=== PATIENT | female | born 1985 | race Two or more races ===

== ENCOUNTER 2016-12-28 18:37 | Emergency (ER) | payer OTHER ==
[~2016-12-28] VITALS: Ht 165.1 cm; Wt 118.3 kg
[~2016-12-28 18:37] MED LIST: FLEXERIL10 MG PO; TYLENOL WITH C1 EACH PO
[2016-12-28 19:09] LABS: HEMATOCRIT 41.7 % (36.0-46.0); MCH 26.5 PG (29.0-34.0); MCHC 31.9 G/DL (30.0-36.0); MCV 83.1 FL (83-99); PLATELET COUNT 237 K/uL (156-360); RBC DIS.WIDTH-CV 15.4 % (11.8-14.6); RBC DIS.WIDTH-SD 46.3 % (39-53); RED BLOOD COUNT 5.02 M/uL (3.80-5.20); WHITE BLOOD COUNT 14.9 K/uL (4.1-10.2)
[2016-12-28 19:17] LABS: CHLORIDE 103 mEq/L (99-109); POTASSIUM 4.4 mEq/L (3.7-5.4); SODIUM 138 mEq/L (136-147)
[2016-12-28 19:19] LABS: GLUCOSE 129 mg/dL (70-99)
[2016-12-28 19:20] LABS: ANION GAP 9 MEQ/L (2-14)
[2016-12-28 19:23] LABS: GFR ESTIMATE (CALCULATED) > 59 mL/min/
[2016-12-28 19:24] LABS: UREA NITROGEN (BUN) 8 mg/dL (9-23)
[2016-12-28 20:05] LABS: ADD MIUA? YES; BILIRUBIN NEGATIVE; BLOOD SMALL; COLOR YELLOW ((YELLOW)); GLUCOSE (STRIP) NEGATIVE; KETONES NEGATIVE; LEUKOCYTES MODERATE; NITRITE POSITIVE; PROTEIN (STRIP) 30; SPECIFIC GRAVITY 1.021 (1.000-1.030); UROBILINOGEN 0.2 MG/DL (0.2-1.0)
[2016-12-28 20:11] LABS: BACTERIA RARE /HPF; CALCIUM OXALATE CRYSTALS 2+ /HPF; EPITHELIAL CELLS 1+ /HPF; HYALINE CASTS 0-5 /LPF; MUCUS TRACE /LPF; RED BLOOD CELLS 0-5 /HPF (0-5); UCUL ADDED? NO
[2016-12-28 20:27] LABS: TOTAL BILIRUBIN 0.2 mg/dL (0.0-1.0)
[2016-12-28 20:29] LABS: ALKALINE PHOSPHATASE 67 IU/L (3-129)
[2016-12-28 20:31] LABS: DIRECT BILIRUBIN 0.1 mg/dL (0.0-0.3)
[2016-12-28 20:32] LABS: LIPASE 44 U/L (1.0-51.0)
[2016-12-28] MEDS ORDERED: LEVAQUIN500 MG PO (22:09)
[2016-12-28] MEDS ORDERED: INDOCIN50 MG PO (22:12)
[2016-12-28] MEDS ORDERED: ZOFRAN ODT4 MG PO (22:12)
[2016-12-28 22:31] VITALS: BP 113/74
== END 2016-12-28 22:32 | disposition home or self-care (01) ==
LOC: EME 18:37
DX: N39.0 Urinary tract infection, site not specified (principal); N12 Tubulo-interstitial nephritis, not specified as acute or chronic; R11.2 Nausea with vomiting, unspecified; F17.200 Nicotine dependence, unspecified, uncomplicated
CPT/HCPCS: 74176; 80048; 80076; 81003; 83690; 85027; 87077; 87086; 87186; 99281; 99284; J1885; J3010

== ENCOUNTER 2018-01-12 18:40 | Emergency (ER) | payer OTHER ==
[~2018-01-12] VITALS: Ht 165.1 cm; Wt 118.4 kg
[~2018-01-12 18:40] MED LIST changes: +INDOCIN50 MG PO; +LEVAQUIN500 MG PO; +ZOFRAN ODT4 MG PO
[2018-01-12 19:27] LABS: APPEARANCE CLEAR ((CLEAR)); BILIRUBIN NEGATIVE; BLOOD NEGATIVE; COLOR STRAW ((YELLOW)); GLUCOSE (STRIP) NEGATIVE; KETONES NEGATIVE; LEUKOCYTES NEGATIVE; NITRITE NEGATIVE; PROTEIN (STRIP) 30; SPECIFIC GRAVITY 1.009 (1.000-1.030); UCUL ADDED? NO; UROBILINOGEN 0.2 MG/DL (0.2-1.0)
[2018-01-12 20:10] LABS: BASOPHIL (%) 0.2 % (0-1); EOSINOPHIL (%) 1.8 % (0-5); EOSINOPHIL COUNT 0.3 K/uL (0-0.3); HEMATOCRIT 39.4 % (36.0-46.0); HEMOGLOBIN 12.7 G/DL (11.9-15.5); IMMATURE GRANULOCYTE (%) 0.3 % (0.0-0.7); LYMPHOCYTE COUNT 2.5 K/uL (1.0-2.8); MCH 26.7 PG (29.0-34.0); MCHC 32.2 G/DL (30.0-36.0); MCV 82.9 FL (83-99); MONOCYTE COUNT 0.7 K/uL (0-0.8); NEUTROPHIL (%) 75.7 % (45-76); PLATELET COUNT 257 K/uL (156-360); RBC DIS.WIDTH-CV 14.3 % (11.8-14.6); RBC DIS.WIDTH-SD 43.1 % (39-53); RED BLOOD COUNT 4.75 M/uL (3.80-5.20); WHITE BLOOD COUNT 14.5 K/uL (4.1-10.2)
[2018-01-12 20:20] LABS: ALBUMIN 4.3 g/dL (3.2-4.8)
[2018-01-12 20:21] LABS: CHLORIDE 104 mEq/L (99-109); POTASSIUM 3.9 mEq/L (3.7-5.4); SODIUM 140 mEq/L (136-147)
[2018-01-12 20:23] LABS: GLUCOSE 120 mg/dL (70-99); TOTAL PROTEIN 7.9 g/dL (6.4-8.3)
[2018-01-12 20:25] LABS: TOTAL BILIRUBIN 0.3 mg/dL (0.0-1.0)
[2018-01-12 20:26] LABS: ALKALINE PHOSPHATASE 63 IU/L (3-129)
[2018-01-12 20:27] LABS: CREATININE 0.7 mg/dL (0.6-1.3); GFR ESTIMATE (CALCULATED) > 59 mL/min/
[2018-01-12 20:28] LABS: AST (GOT) 13 IU/L (2-34); UREA NITROGEN (BUN) 8 mg/dL (9-23)
[2018-01-12 20:30] LABS: ALT (GPT) 15 IU/L (3-49)
[2018-01-12] MEDS ORDERED: LORTAB 5-325 M1 EACH PO (21:45)
[2018-01-12] MEDS ORDERED: MOTRIN800 MG PO (21:45)
[2018-01-12] MEDS ORDERED: FLEXERIL10 MG PO (21:45)
[2018-01-12] MEDS ORDERED: ZOFRAN ODT4 MG PO (21:48)
[2018-01-12 22:19] VITALS: BP 135/78
== END 2018-01-12 22:19 | disposition home or self-care (01) ==
LOC: EME 18:40
PROVIDERS: Emergency Medicine
DX: M54.6 Pain in thoracic spine (principal); R10.9 Unspecified abdominal pain; Z87.442 Personal history of urinary calculi; Z87.19 Personal history of other diseases of the digestive system; F17.200 Nicotine dependence, unspecified, uncomplicated; Z88.5 Allergy status to narcotic agent; Z88.6 Allergy status to analgesic agent
CPT/HCPCS: 74176; 80053; 81003; 81025; 85025; 99281; 99285; J1885; J2405; J3010; J7040